=== PATIENT | male | born 1955 | race Caucasian/White ===

== ENCOUNTER 2018-04-03 08:53 | Day surgery (SDC) | payer BC ==
[2018-04-03] MEDS ORDERED: NS 1,000 ML IV ONE (08:59)
[2018-04-03] MEDS ORDERED: diphenhydrAMINE 25 MG CAP PO ONE (08:59)
[2018-04-03] MEDS ORDERED: FAMOTIDINE 20 MG TAB PO ONE (08:59)
[2018-04-03] MEDS ORDERED: DIAZEPAM 5 MG TAB PO ONE (08:59)
[2018-04-03] MEDS ORDERED: ASPIRIN EC 325 MG TAB PO ONE (08:59)
[2018-04-03 09:36] LABS: PLATELET COUNT 167 10^3/uL (150-400)
--- NOTE | 2018-04-03 09:37 | PDHPUP ---
History & Physical Update H&P update statement: This history and physical update is based on an assessment of the patient which was completed after admission or registration (within 24 hours), but prior to the surgery/procedure. H&P update: H&P reviewed & patient examined, no change in patient's condition since H&P completed
--- NOTE | 2018-04-03 09:38 | PDPROPOC ---
Sedation Plan of Care Sedation Plan of Care: vital signs stable, mental status noted, patient educated of risks, benefits, alternatives, patient can tolerate sedation ASA Classification: ASA 2 Planned drugs: fentanyl, midazolam Mallampati Score: Class 1 Mallampati Reference Image: Patient passed 3-3-2 rule?: Yes
[2018-04-03 09:42] LABS: INR 1.06 (0.83-1.16)
[2018-04-03] MEDS ORDERED: LIDOCAINE 1% 300 MG/30 ML SDV ONE (11:02)
[2018-04-03] MEDS ORDERED: IOPAMIDOL (ISOVUE-370) 150 ML BTL IV ONE (11:03)
[2018-04-03] MEDS ORDERED: MIDAZOLAM 2 MG/2 ML VIAL ONE ×2 (11:03)
[2018-04-03] MEDS ORDERED: fentaNYL 100 MCG/2 ML INJ ONE (11:03)
--- NOTE | 2018-04-03 11:05 | CPEKG ---
Test Reason : OPEN Blood Pressure : / mmHG Vent. Rate : 057 BPM Atrial Rate : 057 BPM P-R Int : 146 ms QRS Dur : 138 ms QT Int : 458 ms P-R-T Axes : 056 -30 -30 degrees QTc Int : 446 ms Sinus rhythm Right bundle branch block LVH with IVCD and secondary repol abnrm Confirmed by Shoaib Baird ([id number]) on 04/03/2018 11:04:48 AM Referred By: Confirmed By:Shoaib Baird
--- NOTE | 2018-04-03 11:57 | PDDXCAT ---
Diagnostic Cath Note - . Date: 04/03/18 [employer] Teacher: Oli Indication: Class I/II angina, intolerance to med therapy or failure to respond High-risk criteria on non-invasive testing: stress-induced moderate-size multiple perfusion defects - Procedure Access: right groin Procedure: left heart catheterization, coronary angiography, left ventriculogram , vein graft injection - Materials Left Heart Cath size: 6F Left Heart Cath materials: standard multipack (JL4, JR4, pigtail), other (LCB) - Findings-Left Heart Catheterization LM: 75% distal stenosis LAD: Luminal irregularities of 10 20%. Large vessel extending to the apex. LCX: Luminal irregularities of 10%. Patent vein graft to the obtuse marginal branch RCA: Stents widely patent with luminal irregularities of not more than 10% Ramus: vein graft to the ramus widely patent rSVG: Widely patent to the obtuse marginal branch, ramus intermedius with retrograde filling of the LAD VENEGAS: None EDP: 15 LVEF: 55% with mild inferior hypokinesis Complications: None Estimated blood loss: <50ml Closure method: Angioseal Assessment: Widely patent right coronary artery stents. Widely patent vein graft to the obtuse marginal branch and ramus with retrograde filling of the LAD. 75% distal left main disease. Preserved left ventricular systolic function with normal filling pressures. Plan: Aggressive medical therapy with clinical follow-up.
[2018-04-03 15:34] VITALS: BP 132/89
== END 2018-04-03 15:38 | disposition home or self-care (01) ==
LOC: FCATH 08:53
PROVIDERS: ATTEND Internal Medicine Interventional Cardiology
PROC: 4A023N7 Measurement of Cardiac Sampling and Pressure, Left Heart, Percutaneous Approach (ICD-10-PCS; principal; 2018-04-03)
PROC: B21F1ZZ Fluoroscopy of Other Bypass Graft using Low Osmolar Contrast (ICD-10-PCS; principal; 2018-04-03)
PROC: B2151ZZ Fluoroscopy of Left Heart using Low Osmolar Contrast (ICD-10-PCS; principal; 2018-04-03)
PROC: B2111ZZ Fluoroscopy of Multiple Coronary Arteries using Low Osmolar Contrast (ICD-10-PCS; principal; 2018-04-03)
DX: I25.10 Atherosclerotic heart disease of native coronary artery without angina pectoris (principal); I25.2 Old myocardial infarction; Z95.1 Presence of aortocoronary bypass graft; I10 Essential (primary) hypertension; E78.5 Hyperlipidemia, unspecified; Z87.820 Personal history of traumatic brain injury
CPT/HCPCS: C1760; J1644; J2250; J3010; Q9967